=== PATIENT | female | born 1990 | race African-American/Black ===

== ENCOUNTER 2018-06-10 20:46 | Emergency (ER) | payer MEDICAID ==
[~2018-06-10] VITALS: Ht 165.1 cm; Wt 126.1 kg
[2018-06-10 23:30] LABS: BASOPHILS % 0.6 % (0.0-2.0); EOSINOPHILS % 3.6 % (0.0-5.0); HEMATOCRIT. 37.4 % (36.0-48.0); HEMOGLOBIN. 12.8 g/dL (12.0-16.0); LYMPHOCYTES % 31.9 % (20.0-50.0); MEAN CORPUSCULAR HEMOGLOBIN 30.1 pg (28.0-32.0); MEAN PLATELET VOLUME 8.1 fl (7.4-10.4); MONOCYTES % 4.3 % (2.0-8.0); NEUTROPHILS % 59.6 % (40.0-76.0); PLATELET 274 x1000/uL (130-400); RED BLOOD CELL COUNT 4.25 mill/uL (4.2-5.4); RED CELL DISTRIBUTION WIDTH 14.1 % (11.6-14.6)
[2018-06-10 23:52] LABS: CLARITY URINE CLOUDY (CLEAR); COLOR URINE YELLOW (YELLOW); KETONES URINE NEGATIVE (NEGATIVE); LEUKOCYTE ESTERASE URINE 1+ (NEGATIVE); NITRITE URINE NEGATIVE (NEGATIVE); OCCULT BLOOD URINE NEGATIVE (NEGATIVE); PH URINE 7.5 (4.5-8.0); PROTEIN URINE NEGATIVE (NEGATIVE); SPECIFIC GRAVITY URINE 1.007 (1.005-1.030)
[2018-06-11 00:11] LABS: OPIATES URINE SCREEN NEGATIVE (NEGATIVE); PHENCYCLIDINE URINE SCREEN NEGATIVE (NEGATIVE)
[2018-06-11 00:12] LABS: *AMPHETAMINES SCREEN URINE NEGATIVE (NEGATIVE); *BARBITURATES SCREEN URINE NEGATIVE (NEGATIVE); *BENZODIAZEPINES SCREEN URINE NEGATIVE (NEGATIVE); *COCAINE SCREEN URINE NEGATIVE (NEGATIVE); METHADONE URINE SCREEN NEGATIVE (NEGATIVE)
[2018-06-11 00:24] LABS: CANNABINOID URINE SCREEN PRESUMTIVE POSITIVE (NEGATIVE)
[2018-06-11 00:40] LABS: CHLORIDE 104 mEq/L (98-107)
[2018-06-11 02:16] VITALS: BP 120/84
== END 2018-06-11 02:18 | disposition home or self-care (01) ==
LOC: ER 20:46
DX: I10 Essential (primary) hypertension (principal); M79.652 Pain in left thigh; M79.651 Pain in right thigh; M79.89 Other specified soft tissue disorders; F17.210 Nicotine dependence, cigarettes, uncomplicated; E66.9 Obesity, unspecified; Z68.42 Body mass index [BMI] 45.0-49.9, adult; Z79.899 Other long term (current) drug therapy
CPT/HCPCS: 36415; 71045; 80048; 80305; 81003; 83880; 85025; 93005; 93970; 99285; 99406